=== PATIENT | male | born 1950 | race Caucasian/White ===

== ENCOUNTER 2023-05-26 09:10 | Emergency (ER) | payer MEDICARE ==
[~2023-05-26] VITALS: Ht 172.7 cm; Wt 41.3 kg
[2023-05-26] MEDS ORDERED: DEXTROSE 50% SYRINGE 50 ML IV STA ×3 (09:20→12:54)
[2023-05-26] MEDS ORDERED: DEXTROSE 50% SYRINGE 50 ML IV ONE ×2 (09:22→12:15)
[2023-05-26] MEDS ORDERED: DEXTROSE 5% 1,000 ML IV ONE (09:30)
[2023-05-26 09:57] LABS: BASOPHILS % 0.2 % (0.0-1.0); EOSINOPHILS # (AUTO) 0.3 (0.0-0.4); EOSINOPHILS % 1.8 % (0.0-6.0); HEMATOCRIT 27.4 % (38.2-49.6); LYMPHOCYTES # (AUTO) 1.2 (1.0-3.2); LYMPHOCYTES % 7.7 % (18.0-39.1); MEAN CORPUSCULAR HGB CONC 33.9 g/dL (31-35); MEAN CORPUSCULAR VOLUME 85.4 fL (81-99); MONOCYTES # (AUTO) 2.1 (0.2-0.8); MONOCYTES % 13.4 % (4.4-11.3); NEUTROPHILS # (AUTO) 11.7 (2.1-6.9); NEUTROPHILS % 76.3 % (38.7-80.0); RED BLOOD COUNT 3.21 x10e6/uL (4.3-5.7); RED CELL DISTRIBUTION WIDTH 14.8 % (11.7-14.4); WHITE BLOOD COUNT 15.27 x10e3/uL (4.8-10.8)
[2023-05-26 10:03] LABS: HEMOGLOBIN 9.3 g/dL (14.0-18.0); PLATELET COUNT 412 x10e3/uL (140-360)
[2023-05-26 10:17] LABS: ALBUMIN 2.2 g/dL (3.5-5.0); ALBUMIN/GLOBULIN RATIO 0.5 (0.8-2.0); ANION GAP 12.8 mmol/L (8-16); CREATININE, SERUM 0.76 mg/dL (0.72-1.25); MAGNESIUM 1.6 MG/DL (1.3-2.1); POTASSIUM 3.8 mmol/L (3.5-5.1)
[2023-05-26] MEDS ORDERED: IOPAMIDOL 370 MG/ML 100 ML INFUS..BTL INJ ONE (10:31)
[2023-05-26 10:47] LABS: INR 1.11; PROTHROMBIN TIME 14.5 seconds (11.9-14.5)
[2023-05-26 10:48] LABS: PARTIAL THROMBOPLASTIN TIME 24.5 seconds (23.8-35.5)
[2023-05-26] MEDS ORDERED: Vancomycin IV 1 GM in SODIUM CHLORIDE 0.9% 250ML 250 ML IV ONE (12:15)
[2023-05-26 12:23] LABS: EOSINOPHILS % (MANUAL) 3 % (0-7); LYMPHOCYTES % (MANUAL) 13 % (19-48); MONOCYTES % (MANUAL) 13 % (3.4-9.0); NEUTROPHILS % (MANUAL) 71 % (40-74)
[2023-05-26 12:24] LABS: PLATELET ESTIMATE SLIGHTLY INCREASED; PLATELET MORPHOLOGY COMMENT NORMAL; RBC MORPHOLOGY COMMENT NORMAL
[2023-05-26] MEDS ORDERED: DEXTROSE 10% 1,000 ML IV SCH (12:45)
[2023-05-26 16:10] LABS: CLARITY,URINE CLEAR (CLEAR); COLOR,URINE YELLOW (YELLOW); KETONES,URINE NEGATIVE (NEGATIVE); LEUKOCYTE ESTERASE ,URINE NEGATIVE (NEGATIVE); NITRITE,URINE NEGATIVE (NEGATIVE); PROTEIN,URINE DIPSTICK NEGATIVE (NEGATIVE); URINE UROBILINOGEN 0.2 mg/dL (0.2 - 1)
[2023-05-26 16:22] LABS: BACTERIA,URINE RARE /HPF; RBC,URINE 0-5 /HPF (0-5); WBC,URINE (MAN) 0-5 /HPF (0-5)
[2023-05-26 19:29] VITALS: BP 124/99; PULSE 101; RESP 20; TEMP 99.5; O2SAT 93
== END 2023-05-26 19:30 | disposition other institution (70) ==
LOC: ER 09:16
DX: E16.2 Hypoglycemia, unspecified (principal); I70.239 Atherosclerosis of native arteries of right leg with ulceration of unspecified site; M79.604 Pain in right leg; L89.152 Pressure ulcer of sacral region, stage 2; E46 Unspecified protein-calorie malnutrition; I10 Essential (primary) hypertension; H40.9 Unspecified glaucoma; G62.9 Polyneuropathy, unspecified; Z89.512 Acquired absence of left leg below knee; R94.31 Abnormal electrocardiogram [ECG] [EKG]
CPT/HCPCS: 36415; 36569; 71045 ×2; 74177; 80053; 81001; 82550; 82947; 82948; 83525; 83690; 83735; 84206; 84484; 84681; 85025; 85610; 85730; 87040; 87086; 93005; 99285; C9113; J2543; J3370; J7050; J7070; J7799; Q9967